=== PATIENT | female | born 1965 | race Caucasian/White ===

== ENCOUNTER 2017-04-30 14:58 | Outpatient (CLI) | payer BC | END 2017-04-30 14:59 | disposition home or self-care (01) | LOC: BICMAMMO 14:58 | PROVIDERS: ATTEND Obstetrics & Gynecology | DX: Z12.31 Encounter for screening mammogram for malignant neoplasm of breast (principal); N63.10 Unspecified lump in the right breast, unspecified quadrant; R92.1 Mammographic calcification found on diagnostic imaging of breast | CPT/HCPCS: 77063; 77067 ==

== ENCOUNTER 2017-10-04 20:30 | Outpatient (CLI) | payer BC | END 2017-10-04 20:31 | disposition home or self-care (01) | LOC: SLEEPLAB 20:30 | PROVIDERS: ATTEND Family Medicine | DX: G47.33 Obstructive sleep apnea (adult) (pediatric) (principal); R06.83 Snoring | CPT/HCPCS: 95811 ==

== ENCOUNTER 2018-06-02 13:15 | Outpatient (CLI) | payer BC ==
--- NOTE | 2018-06-02 16:05 | BD ---
DEXA BONE DENSITY STUDY: Date: 06/02/18 HISTORY: Osteoporosis screening. COMPARISON: DEXA scan from 2013. FINDINGS: Lumbar Spine: BMD (g/cm2) L1 0.932 T-Score: -0.5 Z-Score: 0.3 L2 0.954 T-Score: -0.7 Z-Score: 0.3 L3 0.979 T-Score: -1.0 Z-Score: 0.1 L4 0.937 T-Score: -1.1 Z-Score: 0.1 L1-L4 0.951 T-Score: -0.9 Z-Score: 0.1 WHO Classification: Normal. Change from comparison examination is +1.3%. Left Femoral Neck: 0.756 T-Score: -0.8 Z-Score: 0.1 Total Femur: 0.985 T-Score: 0.4 Z-Score: 1.0 WHO Classification: Normal. Change from comparison examination is -1.4%. IMPRESSION: Normal bone mineral density. POS: DIXIE
== END 2018-06-02 13:16 | disposition home or self-care (01) ==
LOC: BICMAMMO 13:15
PROVIDERS: ATTEND Obstetrics & Gynecology
DX: Z12.31 Encounter for screening mammogram for malignant neoplasm of breast (principal); M81.0 Age-related osteoporosis without current pathological fracture; M85.80 Other specified disorders of bone density and structure, unspecified site; Z79.890 Hormone replacement therapy; Z80.3 Family history of malignant neoplasm of breast
CPT/HCPCS: 77063; 77067; 77080

== ENCOUNTER 2018-10-14 12:42 | Outpatient (CLI) | payer BC ==
--- NOTE | 2018-10-14 12:56 | RAD ---
EXAM: XR Abdomen 2 View DATE: 10/14/2018 12:00 AM INDICATION: Altered bowel function and right upper quadrant abdominal pain COMPARISON: None. FINDING: Lung bases are clear. The gallbladder is surgically absent. There is a moderate amount of r etained stool within colon. Bowel gas pattern is nonspecific but without overt evidence of obstruction. No acute osseous abnormality is evident. IMPRESSION:Moderate amount of retained stool within colon.
== END 2018-10-14 12:43 | disposition home or self-care (01) ==
LOC: BICRAD 12:42
PROVIDERS: ATTEND Physician Assistant Medical
DX: R10.11 Right upper quadrant pain (principal); R19.4 Change in bowel habit; K59.00 Constipation, unspecified
CPT/HCPCS: 74019

== ENCOUNTER 2019-06-10 08:31 | Outpatient (CLI) | payer BC ==
--- NOTE | 2019-06-10 09:15 | MMO ---
Bilateral MAMMO Bilat Screen [facility]. CLINICAL HISTORY: Patient is 53 years old and is seen for screening. The patient has no personal history of cancer. The patient has a history of left Excisional Biopsy in 2013 - benign - 2 ducts removed/bx. VIEWS: The views performed were: bilateral craniocaudal with tomosynthesis and bilateral mediolateral oblique with tomosynthesis. FILMS COMPARED: The present examination has been compared to prior imaging studies performed at [facility] on 05/08/2016, 04/30/2017 and 06/02/2018, and at [facility] on 07/20/2013. This study has been interpreted with the assistance of computer-aided detection. MAMMOGRAM FINDINGS: The breasts are extremely dense, which may lower the sensitivity of mammography. There are stable benign appearing calcifications seen in both breasts. Nodularity is stable. A biopsy clip is seen in the left breast. There are no suspicious masses, suspicious calcifications, or new areas of architectural distortion. IMPRESSION: THERE IS NO MAMMOGRAPHIC EVIDENCE OF MALIGNANCY. A ROUTINE FOLLOW-UP MAMMOGRAM IN 1 YEAR IS RECOMMENDED. THE RESULTS OF THIS EXAM WERE SENT TO THE PATIENT. ACR BI-RADS Category 2 - Benign finding MAMMOGRAPHY NOTE: 1. A negative mammogram report should not delay a biopsy if a dominant of clinically suspicious mass is present. 2. Approximately 10% to 15% of breast cancers are not detected by mammography. 3. Adenosis and dense breasts may obscure an underlying neoplasm. Reported by: SUSHIL HIGHTOWER MD Electonically Signed: [id number]
== END 2019-06-10 08:32 | disposition home or self-care (01) ==
LOC: BICMAMMO 08:31
PROVIDERS: ATTEND Obstetrics & Gynecology
DX: Z12.31 Encounter for screening mammogram for malignant neoplasm of breast (principal); Z91.89 Other specified personal risk factors, not elsewhere classified
CPT/HCPCS: 77063; 77067

== ENCOUNTER 2020-06-14 13:47 | Outpatient (CLI) | payer BC | END 2020-06-14 13:48 | disposition home or self-care (01) | LOC: BICMAMMO 13:47 | PROVIDERS: ATTEND Obstetrics & Gynecology | DX: Z13.820 Encounter for screening for osteoporosis (principal); N64.4 Mastodynia; M81.0 Age-related osteoporosis without current pathological fracture; M85.852 Other specified disorders of bone density and structure, left thigh | CPT/HCPCS: 77066; 77080; G0279 ==

== ENCOUNTER 2021-08-25 08:11 | Outpatient (CLI) | payer BC | END 2021-08-25 08:12 | disposition home or self-care (01) | LOC: BICMAMMO 08:11 | PROVIDERS: ATTEND Obstetrics & Gynecology | DX: Z12.31 Encounter for screening mammogram for malignant neoplasm of breast (principal); Z80.3 Family history of malignant neoplasm of breast; Z91.89 Other specified personal risk factors, not elsewhere classified | CPT/HCPCS: 77063; 77067 ==

== ENCOUNTER 2024-08-20 12:51 | Outpatient (CLI) | payer BC | END 2024-08-20 12:52 | disposition home or self-care (01) | LOC: SCSRAD 12:51 | PROVIDERS: ATTEND Nurse Practitioner Family | DX: S69.92XA Unspecified injury of left wrist, hand and finger(s), initial encounter (principal) ==